=== PATIENT | male | born 1990 | race Caucasian/White ===

== ENCOUNTER 2025-05-02 20:28 | Inpatient (IN) | payer OTHER ==
[~2025-05-02] VITALS: Ht 193 cm; Wt 77.6 kg
[2025-05-02 21:18] LABS: BASOPHILS % 0.6 % (0.0-2.0); EOSINOPHILS % 2.4 % (0.0-5.0); HEMATOCRIT. 44.1 % (42.0-52.0); HEMOGLOBIN. 14.9 g/dL (14.0-18.0); LYMPHOCYTES % 26.2 % (20.0-50.0); MEAN PLATELET VOLUME 8.3 fl (7.4-10.4); MONOCYTES % 9.5 % (2.0-8.0); NEUTROPHILS % 61.3 % (40.0-76.0); PLATELET 195 x1000/uL (130-400); RED BLOOD CELL COUNT 4.89 mill/uL (4.7-6.1); RED CELL DISTRIBUTION WIDTH 13.0 % (11.6-14.6)
[2025-05-02 21:32] LABS: CREATININE 1.1 mg/dL (0.6-1.3); UREA NITROGEN BLOOD 15 mg/dL (9-23)
[2025-05-02 21:33] LABS: TROPONIN I HIGH SENSITIVITY < 4 ng/L (3.0-53)
[2025-05-02] MEDS: ACETAMINOPHEN 500MG TABLET PO SCH (23:20)
[2025-05-02] MEDS: TRAMADOL 50MG TABLET PO SCH (23:21)
[2025-05-02] MEDS: ONDANSETRON HCL 4MG/2ML INJ IV ONE (23:21)
[2025-05-02 23:24] LABS: TROPONIN I HIGH SENSITIVITY < 4 ng/L (3.0-53)
[2025-05-03] VITALS (11 sets, daily range): BP systolic 48–123; BP diastolic 40–85; PULSE 50–65; RESP 17–20; TEMP 35.9–36.8; O2SAT 96–99
[2025-05-03] MEDS ORDERED: HYDRALAZINE 20MG/ML VIAL IV PRN
[2025-05-03] MEDS ORDERED: ONDANSETRON HCL 4MG/2ML INJ IV PRN
[2025-05-03] MEDS ORDERED: ACETAMINOPHEN 325MG TABLET PO PRN ×2
[2025-05-03] MEDS ORDERED: IPRATROPIUM/ALBUTEROL 0.5-3(2.5)MG/3ML NEB HHN PRN
[2025-05-03] MEDS ORDERED: GUAIFENESIN 200MG/10ML SUGAR FREE UDC PO PRN
[2025-05-03] MEDS ORDERED: MIRT-90 PO (00:04)
[2025-05-03 00:44] LABS: PHOSPHORUS 4.1 mg/dL (2.5-4.9)
[2025-05-03 07:46] LABS: BASOPHILS % 0.5 % (0.0-2.0); EOSINOPHILS % 2.9 % (0.0-5.0); HEMATOCRIT. 43.9 % (42.0-52.0); HEMOGLOBIN. 14.6 g/dL (14.0-18.0); LYMPHOCYTES % 41.5 % (20.0-50.0); MEAN PLATELET VOLUME 8.5 fl (7.4-10.4); MONOCYTES % 11.0 % (2.0-8.0); NEUTROPHILS % 44.1 % (40.0-76.0); PLATELET 174 x1000/uL (130-400); RED BLOOD CELL COUNT 4.87 mill/uL (4.7-6.1); RED CELL DISTRIBUTION WIDTH 13.0 % (11.6-14.6)
[2025-05-03 08:03] LABS: CREATININE 1.2 mg/dL (0.6-1.3); TRIGLYCERIDE 44 mg/dL (0-150); UREA NITROGEN BLOOD 14 mg/dL (9-23)
[2025-05-03 08:04] LABS: LDL CHOLESTEROL 72 mg/dL (5-100)
[2025-05-03 08:08] LABS: TROPONIN I HIGH SENSITIVITY < 4 ng/L (3.0-53)
[2025-05-03 08:13] LABS: T4 FREE 1.33 ng/dL (0.89-1.76)
[2025-05-03 11:27] LABS: CLARITY URINE CLEAR (CLEAR); COLOR URINE YELLOW (YELLOW); GLUCOSE URINE NEGATIVE (NEGATIVE); KETONES URINE NEGATIVE (NEGATIVE); LEUKOCYTE ESTERASE URINE NEGATIVE (NEGATIVE); NITRITE URINE NEGATIVE (NEGATIVE); OCCULT BLOOD URINE NEGATIVE (NEGATIVE); PH URINE 6.0 (4.5-8.0); PROTEIN URINE NEGATIVE (NEGATIVE); SPECIFIC GRAVITY URINE 1.021 (1.005-1.030); UROBILINOGEN URINE 0.2 E.U./dL (0.2-1.0)
[2025-05-03 11:46] LABS: *AMPHETAMINES SCREEN URINE NEGATIVE (NEGATIVE); *BARBITURATES SCREEN URINE NEGATIVE (NEGATIVE); *BENZODIAZEPINES SCREEN URINE NEGATIVE (NEGATIVE); *COCAINE SCREEN URINE NEGATIVE (NEGATIVE); CANNABINOID URINE SCREEN PRESUMPTIVE POSITIVE (NEGATIVE); ECSTASY MDMA SCREEN URINE NEGATIVE (NEGATIVE); METHADONE URINE SCREEN NEGATIVE (NEGATIVE); OPIATES URINE SCREEN NEGATIVE (NEGATIVE); PHENCYCLIDINE URINE SCREEN NEGATIVE (NEGATIVE)
[2025-05-03] MEDS ORDERED: IBUPROFEN 600MG TABLET PO PRN (15:15)
[2025-05-03] MEDS: IBUPROFEN 600MG TABLET PO PRN (15:25)
== END 2025-05-03 18:40 | disposition home or self-care (01) | DRG 914 ==
LOC: ER 20:28 → 6WST 22:37 → EDBEDREQ 22:39 → ENRESERV 23:03
PROVIDERS: ADMIT Hospitalist; ATTEND Hospitalist
DX: S09.90XA Unspecified injury of head, initial encounter (principal); E78.5 Hyperlipidemia, unspecified; R07.89 Other chest pain; F17.210 Nicotine dependence, cigarettes, uncomplicated; I45.10 Unspecified right bundle-branch block; W18.39XA Other fall on same level, initial encounter; Y93.89 Activity, other specified; Y92.89 Other specified places as the place of occurrence of the external cause; Y99.8 Other external cause status; Z87.74 Personal history of (corrected) congenital malformations of heart and circulatory system; F32.A Depression, unspecified; F41.9 Anxiety disorder, unspecified
CPT/HCPCS: 36415; 71045; 80048; 80061; 80305; 81003; 82040; 83735; 83880; 84100; 84439; 84443; 84484; 85025; 85379; 93005; 93970; 99285; J2405